=== PATIENT | female | born 1985 | race Caucasian/White ===

== ENCOUNTER 2021-11-05 00:55 | Inpatient (IN) | payer OTHER ==
[~2021-11-05] VITALS: Ht 172.7 cm; Wt 76.0 kg
[2021-11-05 02:13] LABS: HEMOGLOBIN 13.3 gm/dl (12.3-15.3); RED BLOOD COUNT 4.28 M/UL (4.00-5.10); WHITE BLOOD COUNT 8.2 K/UL (4.5-11.0)
[2021-11-05 02:32] LABS: BUN/CREATININE RATIO 28 (0-10)
[2021-11-05] MEDS ORDERED: GUANFACINE HCL2 MG PO (09:51)
[2021-11-05] MEDS ORDERED: BUPRENORPHINE-1 EACH SL (09:51)
[2021-11-05] MEDS ORDERED: TOPIRAMATE200 MG PO (09:52)
[2021-11-05] MEDS ORDERED: BUSPIRONE HCL7.5 MG PO (09:53)
[2021-11-05] MEDS ORDERED: DIVALPROEX SOD250 MG PO (09:53)
[2021-11-05] MEDS ORDERED: DAILY-VITE TA400 MCG PO (09:55)
[2021-11-05] MEDS ORDERED: ROBAXIN 750 MG750 MG PO (09:55)
[2021-11-05] MEDS ORDERED: QUETIAPINE FUM300 MG PO (09:56)
[2021-11-05] MEDS ORDERED: TRAZODONE HCL100 MG PO (09:57)
[2021-11-05] MEDS ORDERED: FAMOTIDINE20 MG PO (09:58)
[2021-11-06 05:14] LABS: HEMOGLOBIN 12.7 gm/dl (12.3-15.3); RED BLOOD COUNT 4.03 M/UL (4.00-5.10); WHITE BLOOD COUNT 7.2 K/UL (4.5-11.0)
[2021-11-06 05:54] LABS: BUN/CREATININE RATIO 18 (0-10)
[2021-11-06] MEDS ORDERED: K-TAB ER20 MEQ PO (12:56)
== END 2021-11-06 13:59 | disposition home or self-care (01) | DRG 918 ==
LOC: CCU 00:55
PROVIDERS: ADMIT Family Medicine
PROC: B24BZZZ Ultrasonography of Heart with Aorta (ICD-10-PCS; principal; 2021-11-05)
DX: T43.621A Poisoning by amphetamines, accidental (unintentional), initial encounter (principal); F11.20 Opioid dependence, uncomplicated; I44.1 Atrioventricular block, second degree; F19.10 Other psychoactive substance abuse, uncomplicated; B19.20 Unspecified viral hepatitis C without hepatic coma; F43.10 Post-traumatic stress disorder, unspecified; E87.6 Hypokalemia; F32.A Depression, unspecified; F41.1 Generalized anxiety disorder; Z98.51 Tubal ligation status
CPT/HCPCS: 36415; 80048; 80053; 82550; 82553; 83735; 83880; 84100; 84132; 84439; 84443; 84484; 85025; 85610; 85652; 93005; 93270; J0171; J1650; J7070